=== PATIENT | female | born 1965 | race Caucasian/White ===

== ENCOUNTER 2016-10-24 16:09 | Emergency (ER) | payer OTHER ==
[2016-10-24 16:17] VITALS: BP 167/107
--- NOTE | 2016-10-24 16:48 | RAD ---
Indication: Right fourth toe injury. 3 views of the right fourth digit demonstrates spiral oblique fracture mid shaft of the fourth proximal phalanx. Soft tissue swelling is noted. IMPRESSION: Spiral fracture through the proximal phalanx of the fourth digit.
--- NOTE | 2016-10-24 17:01 | UC ---
Lower Extremity/Ankle HPI - HPI Summary HPI Summary: TWO HOURS [employer] INJURY TO (4TH) RIGHT TOE, WHILE WALKING DOWN STAIRS. BRUISING AND SWELLING TO TOE. NO OTHER INJURIES. NO FOOT TENDERNESS. NO ANKLE INJURY. NO HEAD TRAUMA. NO NECK PAIN. - History of Current Complaint Hx Obtained From: Patient Hx Last Menstrual Period: 09/24/16 Onset/Duration: Sudden Onset, Lasting Hours, Still Present Severity Initially: Moderate Severity Currently: Moderate Aggravating Factor(s): Standing, Ambulation Alleviating Factor(s): Rest, Ice Able to Bear Weight: Yes - Risk Factors Gout Risk Factors: Negative DVT Risk Factors: Negative Septic Arthritis Risk Factor: Negative <Kan Cueva - Last Filed: 10/24/16 16:53> <Dana Denise - Last Filed: 10/24/16 17:44> - History of Current Complaint Chief Complaint: UCLowerExtremity Stated Complaint: TOE INJURY Time Seen by Provider: 10/24/16 16:16 - Allergies/Home Medications Allergies/Adverse Reactions: Allergies Allergy/AdvReac Type Severity Reaction Status Date / Time No Known Allergies Allergy Verified 10/24/16 16:17 PMH/Surg Hx/FS Hx/Imm Hx Previously Healthy: Yes - Surgical History Surgical History: Yes Surgery Procedure, Year, and Place: c section x 2, tonsillectomy - Family History Known Family History: Negative: Blood Disorder - Social History Occupation: Employed Full-time Lives: With Family Alcohol Use: Weekly Substance Use Type: None Smoking Status (MU): Never Smoked Tobacco <Kan Cueva - Last Filed: 10/24/16 16:53> Review of Systems Constitutional: Negative Skin: Bruising - RIGHT 4TH TOE Eyes: Negative ENT: Negative Respiratory: Negative Cardiovascular: Negative Gastrointestinal: Negative Genitourinary: Negative Motor: Negative Neurovascular: Negative Musculoskeletal: Arthralgia - RIGHT 4TH TOE, Edema - RIGHT 4TH TOE, Myalgia - RIGHT 4TH TOE Neurological: Negative Psychological: Negative All Other Systems Reviewed And Are Negative: Yes <Kan Cueva - Last Filed: 10/24/16 16:53> Physical Exam Triage Information Reviewed: Yes Appearance: Well-Appearing, No Pain Distress, Well-Nourished, Thin Vital Signs: Initial Vital Signs Temp 98.1 F 10/24/16 16:13 Pulse 79 10/24/16 16:13 Resp 18 10/24/16 16:13 BP 167/107 10/24/16 16:13 Pulse Ox 100 10/24/16 16:13 Vital Signs Reviewed: Yes Eye Exam: Normal ENT Exam: Normal ENT: Positive: Normal ENT inspection, Hearing grossly normal Dental Exam: Normal Neck exam: Normal Respiratory Exam: Normal Respiratory: Positive: Chest non-tender, Lungs clear, Normal breath sounds, No respiratory distress Cardiovascular Exam: Normal Cardiovascular: Positive: RRR, No Murmur, Pulses Normal Abdominal Exam: Normal Musculoskeletal: Positive: Strength Limited @, ROM Limited @ - RIGHT 4TH TOE, Edema @ - RIGHT 4TH TOE Neurological Exam: Normal Psychological Exam: Normal Psychological: Positive: Normal Response To Family Skin Exam: Normal <Kan Cueva - Last Filed: 10/24/16 16:53> Vital Signs: Initial Vital Signs Temp 98.1 F 10/24/16 16:13 Pulse 79 10/24/16 16:13 Resp 18 10/24/16 16:13 BP 167/107 10/24/16 16:13 Pulse Ox 100 10/24/16 16:13 <Dana Denise - Last Filed: 10/24/16 17:44> Diagnostics - Laboratory Diagnostic Studies Completed/Ordered: CLOSED SPIRAL FRACTURE RIGHT FOURTH PROXIMAL PHALANX; READ BY ME AND RADIOLOGY <Kan Cueva - Last Filed: 10/24/16 16:53> Lower Extremity Course/Dx - Differential Dx/Diagnosis Differential Diagnosis/HQI/PQRI: Fracture (Closed), Sprain, Strain Provider Diagnoses: CLOSED SPIRAL FRACTURE RIGHT FOURTH PROXIMAL PHALANX - Physician Notifications Instructed by Provider To: Have Pt Call For Appt. <Kan Cueva - Last Filed: 10/24/16 16:53> Discharge <Kan Cueva - Last Filed: 10/24/16 16:53> <Dana Denise - Last Filed: 10/24/16 17:44> - Discharge Plan Condition: Stable Disposition: HOME Patient Education Materials: Toe Fracture (ED) Referrals: Gilda Caelro MD [Primary Care Provider] - Reggie Melchor MD [Medical Doctor] - If Needed Attestation Statement User Type: Provider - I was available for consult. This patient was seen by the D[facility]. The patient was not presented to, seen by, or examined by me. -Rosario <Dana Denise - Last Filed: 10/24/16 17:44>
== END 2016-10-24 16:56 | disposition home or self-care (01) ==
LOC: UCEAST 16:09
DX: S92.511A Displaced fracture of proximal phalanx of right lesser toe(s), initial encounter for closed fracture (principal); X58.XXXA Exposure to other specified factors, initial encounter; Y93.89 Activity, other specified; Y92.9 Unspecified place or not applicable
CPT/HCPCS: 99211; G0463